=== PATIENT | female | born 1970 ===

== ENCOUNTER 2021-08-21 11:00 | Inpatient (IN) | payer OTHER ==
[~2021-08-21] VITALS: Ht 165.1 cm; Wt 104.3 kg
[2021-08-21] MEDS ORDERED: GLIPIZIDE-METF1 EAC1 PO (15:01)
[2021-08-21] MEDS ORDERED: LOSARTAN-HCTZ1 EAC2 PO (15:01)
[2021-08-21] MEDS ORDERED: TOPROL XL50 M1 PO (15:02)
[2021-08-27] MEDS ORDERED: HYOSCYAMINE0.125 M1 SL (12:33)
[2021-08-27] MEDS ORDERED: INTESTINEX680 M1 PO (12:34)
[2021-08-27] MEDS ORDERED: OXYC1TAB9 PO (12:34)
[2021-08-27] MEDS ORDERED: PROTONIX40 MG PO (12:35)
== END 2021-08-27 14:07 | disposition home or self-care (01) | DRG 331 ==
LOC: O/R 08-24 06:33 → SURH 08-24 11:00
PROVIDERS: ADMIT Surgery; ATTEND Surgery
PROC: 0DBP4ZZ Excision of Rectum, Percutaneous Endoscopic Approach (ICD-10-PCS; 2021-08-24)
PROC: 0DTN4ZZ Resection of Sigmoid Colon, Percutaneous Endoscopic Approach (ICD-10-PCS; principal; 2021-08-24 11:00)
DX: K57.20 Diverticulitis of large intestine with perforation and abscess without bleeding (principal); I11.9 Hypertensive heart disease without heart failure; E11.9 Type 2 diabetes mellitus without complications; E66.01 Morbid (severe) obesity due to excess calories